=== PATIENT | male | born 1985 | race Caucasian/White ===

== ENCOUNTER 2016-10-06 15:29 | Emergency (ER) | payer OTHER ==
[~2016-10-06] VITALS: Ht 172.7 cm; Wt 80.0 kg
--- NOTE | 2016-10-06 15:49 | PD ---
HPI Chief Complaint: suicidal idealations Time Seen by Provider: 15:36 Travel History International Travel<30 days: No Contact w/Intl Traveler<30days: No History of Present Illness HPI Patient is a 31-year-old male who presents to ER with complaint of suicidal idealizations. Patient reports that he is a drug addict, reports that he uses heroin, crack, cocaine, reports that he last used drugs yesterday. Patient reports that he is feeling useless, reports that he feels a burning to his family members and reports that "I am just not getting anywhere in life." Patient reports that he is tired with his life and would like to give up on life. Patient reports that he has tried to commit suicide in the past by overdosing on medications, reports that he has not taken any medications today in attempt to overdose today. [place] act placed by Police officers [facility] Past Medical History Medical History: Denies Significant Hx Past Surgical History Other Surgery: Yes (ligament replacement) Family History Family History: Negative Social History Alcohol Use: No Tobacco Use: Yes Substance Use: Yes (cocaine, crack, heroine) Allergies-Medications (Allergen,Severity, Reaction): Coded Allergies: Morphine (Verified Allergy, Severe, 10/06/16) Reported Meds & Prescriptions Reported Meds & Active Scripts Active No Active Prescriptions or Reported Medications Physical Exam Narrative GENERAL: nad, nontoxic SKIN: Warm and dry. HEAD: Atraumatic. Normocephalic. EYES: Pupils equal and round. No scleral icterus. No injection or drainage. ENT: No nasal bleeding or discharge. Mucous membranes pink and moist. NECK: Trachea midline. No JVD. CARDIOVASCULAR: Regular rate and rhythm. No murmur appreciated. RESPIRATORY: No accessory muscle use. Clear to auscultation. Breath sounds equal bilaterally. GASTROINTESTINAL: Abdomen soft, non-tender, nondistended. Hepatic and splenic margins not palpable. MUSCULOSKELETAL: No obvious deformities. No clubbing. No cyanosis. No edema. NEUROLOGICAL: Awake and alert. No obvious cranial nerve deficits. Motor grossly within normal limits. Normal speech. PSYCHIATRIC: Patient anxious on exam, patient with suicidal idealizations, no homicidal idealization. Data Data Last Documented VS Vital Signs Date Time Temp Pulse Resp B/P Pulse Ox O2 Delivery O2 Flow Rate FiO2 10/06/16 22:16 54 18 114/67 99 Room Air 10/06/16 18:46 97.4 Orders Complete Blood Count With Diff (10/06/16 15:41) Comprehensive Metabolic Panel (10/06/16 15:41) Drug Screen, Random Urine (10/06/16 15:41) Salicylates (Aspirin) (10/06/16 15:41) Tylenol (Acetaminophen) (10/06/16 15:41) Psych Screen (10/06/16 15:41) Labs Laboratory Tests Test 10/06/16 10/06/16 16:05 16:10 Urine Opiates Screen NEG Urine Barbiturates Screen NEG Urine Amphetamines Screen NEG Urine Benzodiazepines Screen POS Urine Cocaine Screen POS Urine Cannabinoids Screen NEG White Blood Count 16.3 TH/MM3 Red Blood Count 5.35 MIL/MM3 Hemoglobin 15.7 GM/DL Hematocrit 45.5 % Mean Corpuscular Volume 85.1 FL Mean Corpuscular Hemoglobin 29.3 PG Mean Corpuscular Hemoglobin 34.5 % Concent Red Cell Distribution Width 13.6 % Platelet Count 379 TH/MM3 Mean Platelet Volume 7.8 FL Neutrophils (%) (Auto) 78.0 % Lymphocytes (%) (Auto) 15.9 % Monocytes (%) (Auto) 5.1 % Eosinophils (%) (Auto) 0.4 % Basophils (%) (Auto) 0.6 % Neutrophils # (Auto) 12.7 TH/MM3 Lymphocytes # (Auto) 2.6 TH/MM3 Monocytes # (Auto) 0.8 TH/MM3 Eosinophils # (Auto) 0.1 TH/MM3 Basophils # (Auto) 0.1 TH/MM3 CBC Comment DIFF FINAL Differential Comment Sodium Level 137 MEQ/L Potassium Level 4.0 MEQ/L Chloride Level 102 MEQ/L Carbon Dioxide Level 25.7 MEQ/L Anion Gap 9 MEQ/L Blood Urea Nitrogen 17 MG/DL Creatinine 0.97 MG/DL Estimat Glomerular Filtration 90 ML/MIN Rate Random Glucose 68 MG/DL Calcium Level 9.2 MG/DL Total Bilirubin 2.0 MG/DL Aspartate Amino Transf 30 U/L (AST/SGOT) Alanine Aminotransferase 43 U/L (ALT/SGPT) Alkaline Phosphatase 90 U/L Total Protein 8.4 GM/DL Albumin 4.0 GM/DL Salicylates Level LESS THAN 1.7 MG/DL Acetaminophen Level LESS THAN 2.0 MCG/ML MDM Medical Decision Making Medical Screen Exam Complete: Yes Emergency Medical Condition: Yes Differential Diagnosis drug abuse, suicidal ideations, drug overdose, anxiety, depression Narrative Course Patient is a 31-year-old male who presents to emergency room for suicidal ideations. Patient reports that he has history of drug abuse, reports that he last used drugs yesterday. Patient reports that he feels depressed and feels like he is a burden to his family and friends. Patient reports that he does have history of suicide attempts in the past by overdosing on drugs. Patient has not tried to overdose on drugs today. Patient called fire protection specialist today because he felt suicidal. home lending officer's picked up patient from home today and [place] Act initiated on him. Psychiatric clearance lab order for patient. Will have patient be seen by psychiatric screener once cleared Scripts No Active Prescriptions or Reported Meds Kirstie Espinosa DO Oct 06, 2016 15:49
[2016-10-06 15:58] VITALS: BP 120/84; PULSE 92; RESP 20; TEMP 98.2; O2SAT 99
[2016-10-06 16:49] LABS: AUTOMATED NEUTROPHIL # 12.7 TH/MM3 (1.8-7.7); BASOPHIL # 0.1 TH/MM3 (0-0.2); BASOPHIL % 0.6 % (0.0-2.0); EOSINOPHIL # 0.1 TH/MM3 (0-0.4); EOSINOPHIL % 0.4 % (0.0-4.0); HEMATOCRIT 45.5 % (39.0-51.0); HEMO FLAGS DIFF FINAL; LYMPH % 15.9 % (9.0-44.0); LYMPHOCYTE # 2.6 TH/MM3 (1.0-4.8); MEAN CELL VOLUME 85.1 FL (80.0-100.0); MEAN CORPUSCULAR HEMOGLOBIN 29.3 PG (27.0-34.0); MEAN CORPUSCULAR HGB CONC 34.5 % (32.0-36.0); MONO % 5.1 % (0.0-8.0); PLATELET COUNT 379 TH/MM3 (150-450); RED BLOOD COUNT 5.35 MIL/MM3 (4.50-5.90); RED CELL DISTRIBUTION WIDTH 13.6 % (11.6-17.2); WHITE BLOOD COUNT 16.3 TH/MM3 (4.0-11.0)
[2016-10-06 17:00] LABS: AMPHETAMINE, URINE NEG (NEG); BARBITURATES, URINE NEG (NEG); COCAINE, URINE POS (NEG)
[2016-10-06 17:09] LABS: ANION GAP 9 MEQ/L (5-15); AST (GOT) 30 U/L (15-37); BICARBONATE 25.7 MEQ/L (21.0-32.0); BLOOD UREA NITROGEN 17 MG/DL (7-18); CHLORIDE 102 MEQ/L (98-107); GLOMERULAR FILTRATION RATE 90 ML/MIN (>89); SODIUM (NA) 137 MEQ/L (136-145)
[2016-10-06 17:12] LABS: ALKALINE PHOSPHATASE 90 U/L (45-117); ALT (GPT) 43 U/L (12-78)
[2016-10-06 17:20] LABS: ACETAMINOPHEN LESS THAN 2.0 MCG/ML (10.0-30.0)
[2016-10-06 18:46] VITALS: BP 126/80; PULSE 89; RESP 18; TEMP 97.4; O2SAT 99
[2016-10-06 22:16] VITALS: BP 114/67; PULSE 54; RESP 18; O2SAT 99
== END 2016-10-06 23:56 ==
LOC: NEPC 15:29 → NEPJ 23:56
DX: R45.851 Suicidal ideations (principal); F14.20 Cocaine dependence, uncomplicated
CPT/HCPCS: 80053; 80307; 80329; 85025; 99285; G0480